=== PATIENT | female | born 1980 | race Caucasian/White ===

== ENCOUNTER 2016-10-30 17:23 | Outpatient (CLI) | payer OTHER ==
--- NOTE | 2016-10-30 17:54 | DIAGNOSTIC IMAGING REPORT ---
PROCEDURE: XR LUMBAR SPINE 2 OR 3 VIEWS INDICATION: LOW BACK PAIN TECHNIQUE: Three views of the lumbar spine COMPARISON: None. FINDINGS: Five lumbar-type vertebral bodies are present. Normal vertebral body height without fracture. Mild rightward curvature with the apex at the L2-3 level. No AP subluxation. Moderate disc height loss L5-S1 and mild disc height loss L4-5. No significant endplate or facet joint degeneration. The visible osseous pelvis and bowel gas pattern are normal. IMPRESSION: 1. Mild rightward curvature. 2. Mild to moderate disc height loss L4-5 and L5-S1.
== END 2016-10-30 23:00 ==
LOC: XR SRH 17:23
DX: M43.9 Deforming dorsopathy, unspecified (principal); R29.890 Loss of height